=== PATIENT | female | born 1995 | race Hispanic/Latino ===

== ENCOUNTER 2019-10-07 18:59 | Observation (INO) | payer MEDICAID ==
[~2019-10-07] VITALS: Ht 152.4 cm; Wt 59.4 kg
[~2019-10-07 18:59] MED LIST: NITR100C PO
[2019-10-07] MEDS ORDERED: LACTATED RINGERS 1000ML 1,000 ML IV PRN (21:03)
[2019-10-07] MEDS ORDERED: MEPERIDINE HCL/PF 25 MG/0.5 ML AMPUL IM PRN (23:00)
[2019-10-07] MEDS ORDERED: ONDANSETRON HCL 4 MG/2 ML VIAL IVP PRN (23:00)
[2019-10-07] MEDS ORDERED: CEFTRIAXONE SODIUM 2 GM VIAL IVPB SCH (23:00)
[2019-10-07] MEDS ORDERED: PROMETHAZINE HCL 25 MG/ML 1ML AMPULE IM PRN (23:00)
[2019-10-07] MEDS ORDERED: LACTATED RINGERS 1000ML 1,000 ML IV SCH (23:00)
[2019-10-07 23:10] LABS: BASOPHILS % (AUTO) 0.3 % (0.0-5.0); EOSINOPHILS % (AUTO) 0.1 % (0.0-8.0); HEMATOCRIT 34.4 % (36-48); LYMPHOCYTES % (AUTO) 12.8 % (21.0-51.0); MEAN CORPUSCULAR HEMOGLOBIN 30.7 pg (27.0-33.0); MEAN CORPUSCULAR HGB CONC 33.4 g/dL (32.0-36.0); MEAN CORPUSCULAR VOLUME 91.7 fL (79-99); MONOCYTES % (AUTO) 4.4 % (3.0-13.0); NEUTROPHILS % (AUTO) 81.7 % (40.0-77.0); PLATELET COUNT (AUTO) 231 K/uL (130-400); RED BLOOD CELL COUNT(AUTO) 3.75 MIL/uL (4.00-5.50); RED CELL DISTRIBUTION WIDTH 13.1 % (11.0-15.5); WHITE BLOOD COUNT (AUTO) 15.1 K/uL (4.8-10.8)
[2019-10-07] MEDS ORDERED: LACTATED RINGERS 1000ML 1,000 ML IV ONE ×2 (23:16)
[2019-10-07] MEDS ORDERED: MEPERIDINE-PF 25 MG/ML SYG ONE (23:16)
[2019-10-07] MEDS ORDERED: CEFTRIAXONE SODIUM 1 GM ONE (23:17)
[2019-10-07] MEDS ORDERED: SODIUM CHLORIDE 0.9% 50 ML IV ONE (23:18)
[2019-10-07 23:42] VITALS: BP 120/66
[2019-10-07] MEDS ORDERED: FLU VACC QS2019-20 36MOS UP/PF 60 MCG/0.5 ML ML IM SCH (23:45)
[2019-10-08 15:53] LABS: APPEARANCE,URINE Turbid (CLEAR); BILIRUBIN,URINE Negative (NEGATIVE); COLOR,URINE Yellow (YELLOW); GLUCOSE, URINE (UA) Negative (NEGATIVE); KETONES,URINE Negative (NEGATIVE); LEUKOCYTE ESTERASE ,URINE Large (NEGATIVE); NITRATE,URINE Negative (NEGATIVE); PH,URINE 6.5 (5.0-8.0); PROTEIN,URINE 300 mg/dL (NEGATIVE)
[2019-10-08 15:54] LABS: OCCULT BLOOD,URINE Moderate (NEGATIVE)
[2019-10-08 16:36] LABS: BACTERIA,URINE Many /HPF (None Seen); WBC,URINE 26-50 /HPF (0-1)
[2019-10-08 16:37] LABS: MUCUS,URINE Few LPF (None Seen); SQUAMOUS EPITHELIAL CELL,UR 0-2 /HPF (0-2)
== END 2019-10-08 09:48 | disposition home or self-care (01) ==
LOC: EDH 18:59 → LDH 19:00
PROVIDERS: ADMIT Specialist; ATTEND Specialist
DX: O23.42 Unspecified infection of urinary tract in pregnancy, second trimester (principal); Z87.440 Personal history of urinary (tract) infections; Z3A.24 24 weeks gestation of pregnancy
CPT/HCPCS: 36415; 81001; 85025; 87077; 87088; 87186; 96372; 99284; G0378 ×15; J0696 ×2; J2175; J7120 ×2; 96360; 96361; Q2035

== ENCOUNTER 2020-01-25 06:13 | Inpatient (IN) | payer MEDICAID ==
[~2020-01-25] VITALS: Ht 152.4 cm; Wt 64.4 kg
[2020-01-25] MEDS ORDERED: LACTATED RINGERS 1000ML 1,000 ML IV PRN (06:16)
[2020-01-25] MEDS ORDERED: OXYTOCIN 10 USP UNITS/ML 20 UNIT in LACTATED RINGERS 1000ML 1,000 ML IV SCH (07:00)
[2020-01-25 07:43] LABS: HEMATOCRIT 38.7 % (36-48); MEAN CORPUSCULAR HEMOGLOBIN 28.8 pg (27.0-33.0); MEAN CORPUSCULAR VOLUME 89.8 fL (79-99); RED BLOOD CELL COUNT(AUTO) 4.31 MIL/uL (4.00-5.50); RED CELL DISTRIBUTION WIDTH 13.5 % (11.0-15.5); WHITE BLOOD COUNT (AUTO) 8.4 K/uL (4.8-10.8)
[2020-01-25] MEDS: OXYTOCIN-LR 20 UNITS/1000 ML 1,000 ML IV SCH ×2 (07:50→20:32)
[2020-01-25 07:55] LABS: APPEARANCE,URINE Clear (CLEAR); BILIRUBIN,URINE Negative (NEGATIVE); COLOR,URINE Yellow (YELLOW); GLUCOSE, URINE (UA) Negative (NEGATIVE); KETONES,URINE Negative (NEGATIVE); LEUKOCYTE ESTERASE ,URINE Negative (NEGATIVE); NITRATE,URINE Negative (NEGATIVE); OCCULT BLOOD,URINE Negative (NEGATIVE); PROTEIN,URINE Negative (NEGATIVE); UROBILINOGEN,URINE 0.2 mg/dL (0.2-1.0)
[2020-01-25] MEDS ORDERED: LIDOCAINE HCL 1% 20 ML VIAL INJ PRN (08:15)
[2020-01-25] MEDS ORDERED: LACTATED RINGERS 500 ML 500 ML IV PRN (08:15)
[2020-01-25] MEDS ORDERED: ROPIVACAINE 0.2% 100ML VIAL 100 ML EP SCH (08:15)
[2020-01-25] MEDS ORDERED: EPHEDRINE SULFATE 50 MG/ML AMPULE IVP PRN (08:15)
[2020-01-25] MEDS ORDERED: NALOXONE HCL 0.4 MG/1 ML ML IV PRN (08:15)
[2020-01-25] MEDS ORDERED: BENZOCAINE/LANOLIN/ALOE VERA 60 ML AEROSOL TP PRN (16:30)
[2020-01-25] MEDS ORDERED: WITCH HAZEL 1 PAD TP PRN (16:30)
[2020-01-25] MEDS ORDERED: ACETAMINOPHEN-CODEINE 300/30MG TAB PO PRN (16:30)
[2020-01-25] MEDS ORDERED: LANOLIN 30GM OINTMENT TP PRN (16:30)
[2020-01-25 18:05] VITALS: BP 119/65
[2020-01-25] MEDS: ACETAMINOPHEN 325 MG TAB PO PRN (18:20)
[2020-01-25] MEDS ORDERED: PNV1TABL17 PO (18:54)
[2020-01-25] MEDS ORDERED: MACR100 PO (18:54)
--- NOTE | 2020-01-25 19:04 | NUR ---
PATIENT ORIENTED TO ROOM. BILATERAL LOWER EXTREMITY IS HEAVY. FUNDUS IS FIRM, BLEEDING IS SCANT. ADVISED PATIENT TO CALL WHEN NEEDING ASSISTANCE AMBULATING OR WITH ANY NEEDS OR CONCERNS.
[2020-01-25 19:48] VITALS: BP 113/65
[2020-01-25] MEDS: DOCUSATE SODIUM 100 MG CAP PO SCH (20:50)
[2020-01-25 23:26] VITALS: BP 128/75
[2020-01-26 03:24] VITALS: BP 95/58
[2020-01-26] MEDS: ACETAMINOPHEN 325 MG TAB PO PRN ×2 (06:09→13:23)
[2020-01-26 07:17] VITALS: BP 101/57
[2020-01-26 09:10] LABS: HEPATITIS Bs ANTIGEN SCREEN P Negative (Negative)
[2020-01-26] MEDS: DOCUSATE SODIUM 100 MG CAP PO SCH (09:20)
--- NOTE | 2020-01-26 10:20 | NUR ---
DR. CAUSEY ROUNDED AND DISCHARGED PATIENT TO HOME. PATIENT TO FOLLOW-UP IN ONE WEEK IN CLINIC. INSTRUCTED TO CALL TUESDAY, January FOR FOLLOW UP APPOINTMENT AND VERBALIZED UNDERSTANDING.
[2020-01-26 11:17] VITALS: BP 113/72
--- NOTE | 2020-01-26 15:15 | NUR ---
DISCHARGE INSTRUCTIONS GIVEN AND VERBALIZED UNDERSTANDING INSTRUCTIONS GIVEN. PATIENT ADVISED TO TAKE TYLENOL OVER THE COUNTER NEEDED FOR DISCOMFORT. INDICATED HAVING AN ALLERGY TO MOTRIN WHEN YOUNG AND WANT TO TRY MOTRIN AND ADVISED TO JUST TAKE TYLENOL. INDICATED UNDERSTANDING.
[2020-01-26 16:35] VITALS: BP 123/58
--- NOTE | 2020-01-26 16:50 | NUR ---
PATIENT WAS TAKEN VIA W/C TO [facility]ILY [facility] IN [place] AND WERE DISCHARGED TO HER SIGNIFICANT OTHER. PATIENT IS STABLE AND DENIES PAIN.
== END 2020-01-26 16:50 | disposition home or self-care (01) | DRG 560 ==
LOC: LDH 06:13 → WSH 17:55
PROVIDERS: ADMIT Specialist; ATTEND Specialist
PROC: 10E0XZZ Delivery of Products of Conception, External Approach (ICD-10-PCS; principal; 2020-01-25)
PROC: 3E0R3BZ Introduction of Anesthetic Agent into Spinal Canal, Percutaneous Approach (ICD-10-PCS; 2020-01-25)
PROC: 00HU33Z Insertion of Infusion Device into Spinal Canal, Percutaneous Approach (ICD-10-PCS; 2020-01-25)
PROC: 10907ZC Drainage of Amniotic Fluid, Therapeutic from Products of Conception, Via Natural or Artificial Opening (ICD-10-PCS; 2020-01-25)
PROC: 3E033VJ Introduction of Other Hormone into Peripheral Vein, Percutaneous Approach (ICD-10-PCS; 2020-01-25)
PROC: 0UQGXZZ Repair Vagina, External Approach (ICD-10-PCS; 2020-01-25)
DX: O71.4 Obstetric high vaginal laceration alone (principal); Z37.0 Single live birth; Z3A.39 39 weeks gestation of pregnancy
CPT/HCPCS: 36415; 81003; 85027; 86592; 86850; 86900; 86901; 87340; A4314; A4606; G0378; J2590; J2795; J7120

== ENCOUNTER 2024-01-21 00:21 | Emergency (ER) | payer MEDICAID ==
[~2024-01-21] VITALS: Ht 152.4 cm; Wt 62.6 kg
[~2024-01-21 00:21] MED LIST changes: +MACR100 PO; +PNV1TABL17 PO
[2024-01-21 01:06] LABS: BASOPHILS # (AUTO) 0.03 K/uL (0.00-0.20); BASOPHILS % (AUTO) 0.4 % (0.0-5.0); EOSINOPHILS # (AUTO) 0.06 K/uL (0.00-0.70); EOSINOPHILS % (AUTO) 0.7 % (0.0-8.0); HEMATOCRIT 38.6 % (36-48); IMMATURE GRANULOCYTE ABSOLUTE 0.02 K/uL (0-1); LYMPHOCYTES # (AUTO) 2.7 K/uL (1.0-4.8); LYMPHOCYTES % (AUTO) 32.5 % (21.0-51.0); MEAN CORPUSCULAR HEMOGLOBIN 27.2 pg (27.0-33.0); MEAN CORPUSCULAR HGB CONC 32.1 g/dL (32.0-36.0); MEAN CORPUSCULAR VOLUME 84.6 fL (79-99); MONOCYTES # (AUTO) 0.5 K/uL (0.1-1.0); MONOCYTES % (AUTO) 5.8 % (3.0-13.0); NEUTROPHILS # (AUTO) 5.1 K/uL (1.8-7.7); NEUTROPHILS % (AUTO) 60.4 % (40.0-77.0); PLATELET COUNT (AUTO) 242 K/uL (130-400); RED BLOOD CELL COUNT(AUTO) 4.56 MIL/uL (4.00-5.50); RED CELL DISTRIBUTION WIDTH 12.6 % (11.0-15.5); WHITE BLOOD COUNT (AUTO) 8.4 K/uL (4.8-10.8)
[2024-01-21 01:13] LABS: APPEARANCE,URINE CLEAR (CLEAR); BILIRUBIN,URINE NEGATIVE (NEGATIVE); COLOR,URINE LIGHT-YELLOW (YELLOW); GLUCOSE, URINE (UA) NEGATIVE (NEGATIVE); KETONES,URINE NEGATIVE (NEGATIVE); LEUKOCYTE ESTERASE ,URINE NEGATIVE Leu/uL (NEGATIVE); NITRATE,URINE NEGATIVE (NEGATIVE); OCCULT BLOOD,URINE NEGATIVE (NEGATIVE); PH,URINE 6.5 (5.0-8.0); PROTEIN,URINE NEGATIVE (NEGATIVE); UROBILINOGEN,URINE 0.2 mg/dL (0.2-1.0)
[2024-01-21 01:16] LABS: ADD UA MICROSCOPIC NO
[2024-01-21 01:18] LABS: HCG,QUALITATIVE URINE NEGATIVE (NEGATIVE)
[2024-01-21 01:22] LABS: CREATININE 0.9 mg/dL (0.5-1.0); POTASSIUM 3.6 mmol/L (3.5-5.1)
[2024-01-21 01:26] LABS: ALBUMIN 3.9 g/dL (3.5-5.0); BILIRUBIN,TOTAL 0.2 mg/dL (0.2-1.0); TOTAL PROTEIN, SERUM 7.9 g/dL (6.0-8.3)
[2024-01-21] MEDS: DiphenhydrAMINE HCL 50 MG/ML VIAL IV ONE (01:30)
[2024-01-21] MEDS: PROCHLORPERAZINE 10MG/2ML INJ IV ONE (01:30)
[2024-01-21] MEDS: 0.9%NACL 1000ML 1,000 ML IV ONE (01:31)
[2024-01-21] MEDS ORDERED: FLUT16H NASAL (05:00)
[2024-01-21] MEDS ORDERED: AMOX1TAB16 PO (05:00)
[2024-01-21 05:12] VITALS: BP 108/60; PULSE 77; RESP 16; O2SAT 100
== END 2024-01-21 05:13 | disposition home or self-care (01) ==
LOC: EDH 00:21
DX: G44.209 Tension-type headache, unspecified, not intractable (principal); J32.9 Chronic sinusitis, unspecified; Z79.899 Other long term (current) drug therapy; Z98.890 Other specified postprocedural states; Z88.6 Allergy status to analgesic agent
CPT/HCPCS: 99285; 96374; 96361; 70450; 96375; 82550; 84484; 80053; 85025; 81003; 81025; 36415; 93005; J1200; J7030; J0780